=== PATIENT | female | born 1960 | race African-American/Black ===

== ENCOUNTER 2017-02-09 09:45 | Inpatient (IN) | payer MEDICARE, OTHER ==
[2017-02-01 16:20] LABS: BASOPHILS 0.1 %; BASOPHILS ABSOLUTE 0.01 10/3/uL (0.0-0.16); EOSINOPHILS 0.4 %; EOSINOPHILS ABSOLUTE 0.03 10/3/uL (0.0-0.53); HEMATOCRIT 40.5 % (36.0-48.0); HEMOGLOBIN 13.3 g/dL (12.0-16.0); IMMATURE GRANULOCYTES 0.3 %; IMMATURE GRANULOCYTES ABSOLUTE 0.02 10/3/uL (0.0-0.11); LYMPHOCYTES 17.2 %; LYMPHOCYTES ABSOLUTE 1.33 10/3/uL (0.67-4.30); MANUAL DIFF NO %; MEAN CORPUS HGB CONC 32.8 g/dL (32.0-36.0); MEAN CORPUSCULAR VOLUME 97.4 fL (80-100); MEAN PLATELET VOLUME 10.6 fL (9.2-13.0); MONOCYTES ABSOLUTE 0.23 10/3/uL (0.21-1.20); NEUTROPHILS ABSOLUTE 6.12 10/3/uL (2.02-8.40); PLATELET COUNT 297 10/3/uL (150-400); RED CELL COUNT 4.16 10/6/uL (4.0-5.6); WHITE BLOOD CELLS 7.7 10/3/uL (4.5-10.5)
[2017-02-01 16:26] LABS: PROTIME (NOT ORD) 13.1 SEC (12.0-14.5)
[2017-02-01 16:37] LABS: A/G RATIO 0.9 (0.7-1.9); ALBUMIN 3.6 G/DL (3.5-5.0); BUN (BLOOD UREA NITROGEN) 13 MG/DL (6-23); CALCIUM, SERUM 9.2 MG/DL (8.5-10.4); CHLORIDE, SERUM 108 MMOL/L (96-112); CO2 (CARBON DIOXIDE) 30 MMOL/L (24-34); GFR AFRICAN AMERICAN 117 ML/MIN (>=60); GFR NON AFRICAN AMERICAN 101 ML/MIN (>=60); GLOBULIN 3.9 G/DL (2.5-4.1); GLUCOSE, SERUM 96 MG/DL (60-99); SGOT(AST) 12 U/L (5-40); SGPT(ALT) 15 U/L (5-65); SODIUM, SERUM 144 MMOL/L (135-148); TOTAL BILIRUBIN 0.3 MG/DL (0-1.2); TOTAL PROTEIN 7.5 G/DL (6.0-8.5)
[2017-02-01 16:38] LABS: ALKALINE PHOSPHATASE 95 U/L (45-117); POTASSIUM, SERUM 4.2 MMOL/L (3.5-5.3)
[2017-02-01 17:36] LABS: ASCORBIC ACID (UR NOT ORDER) 20 (NEG); BILIRUBIN, URINE NEGATIVE (NEG); KETONE, URINE NEGATIVE (NEG); LEUKOCYTE ESTERASE(NOT OR NEG (NEG); WBC (NOT ORDERED) (RFLEX) 1 (0-5)
--- NOTE | ~2017-02-09 | OP ---
Record Of Operation [facility] [address] [place]. [address] NAME: ROLANDO YOUNG : 58 STATUS : ADM IN PAT#: [id number] AGE: 56 ADM/REG DATE : 02/09/17 MR#: [id number] REPORT SERV DATE: 02/09/17 DICTATED BY: DAGOBERTO SHAH DATE: 02/09/17 REPORT STATUS : Draft TRANSCRIBED BY: ALEXANDRA DATE: 02/09/17 DATE OF PROCEDURE: 02/09/2017 PREOPERATIVE DIAGNOSIS: Severe right hip degenerative joint disease. POSTOPERATIVE DIAGNOSIS: Severe right hip degenerative joint disease. PROCEDURE: Uncemented total hip arthroplasty, Tri-Lock. SIDE: Right side. HOISTER: See chart. ANESTHESIA: See chart. SIZE: See chart. ESTIMATED BLOOD LOSS: About 100 mL. INDICATIONS FOR SURGERY: DESCRIPTION OF PROCEDURE: The patient was taken to the operating room and placed supine on the table without incident. Anesthetic was induced per the anesthesiologist. A Olivier catheter was placed by the nurse in the standard sterile technique. The correct side for the procedure was identified by preoperative markings and matched with the consent form. All personnel in the room were in agreement regarding the procedure, patient, and side. The patient was then carefully positioned and carefully padded and prepped and draped in the normal sterile fashion. The patient received prophylactic preoperative antibiotics at the appropriate time. The preoperative x-ray was brought up on the monitor. Again, this was reviewed with the staff in the room. According with the preoperative plan, and angled, an anterolateral incision was made centered over the trochanter extending from proximal posterior to distal anterior. Electrocautery was used to maintain meticulous hemostasis. The IT band was split in line with its fibers. A Charnley retractor was placed over saline moistened laps. A standard anterolateral approach to the hip was carried out dissecting in line with the vastus medialis fibers lifting the inferior 20% of the vastus medialis, proximally the interior 20% of the gluteus medius and gluteus minimus tendons off the anterior capsule. Periosteal elevator was used to elevate soft tissue gently directly off the proximal anterior femoral bone. Appropriate retractors were carefully placed. Complete anterior capsulectomy was performed. The hip was then carefully dislocated with a combination of traction maneuver by the product development assistant and scooping the ball out of the socket with a Hohmann. A femoral neck osteotomy was marked according to what had been preoperatively planned with a broach as a template. The distance for the femoral neck osteotomy was measured with a ruler. A femoral neck osteotomy was made with an oscillating saw under appropriate retraction. Meticulous hemostasis was again obtained. The leg was then brought up out of the anterior bag and Record Of Operation [address] [place]. [address] NAME: ROLANDO YOUNG : 58 STATUS : ADM IN PAT#: [id number] AGE: 56 ADM/REG DATE : 02/09/17 MR#: [id number] REPORT SERV DATE: 02/09/17 DICTATED BY: DAGOBERTO SHAH DATE: 02/09/17 REPORT STATUS : Draft TRANSCRIBED BY: ALEXANDRA DATE: 02/09/17 positioned with the lower extremity in external rotation and slight flexion. Acetabular retractors were placed carefully palpating to be sure that they were directly on the bone. The acetabular labrum was excised with electrocautery and rongeur. Pulvinar fat was removed with a large curette and rongeur and again meticulous hemostasis was obtained. Sequential reamers were used in the acetabulum to 1 mm. less than the final size which was chosen. This was felt to give excellent interference fit. The acetabular fossa was then copiously irrigated with pulsatile lavage and actual acetabular component was placed and impacted and checked to make sure it was down snug. The overall alignment was checked. The acetabular level glass vial filler was then removed. Screws were placed in the standard fashion. A drill, depth gauge and self tapping screw placement taking care not to plunge as the drill holes were carefully placed. A trial liner was then placed and attention directed back to the proximal femur. The leg was placed back into the anterior bag. The proximal femur was prepared using a box chisel following by a T-handled reamer to determine the intramedullary alignment. This was followed by sequential broaches up to the final broach. Once it was seated in the appropriate position, a Calcar reamer was used to plane the proximal femur. Trial reduction was then done with a trial prosthetic ball and neck. A straight edge was used to compare the tip of the trochanter to center of the ball relationship to what had been noted on the preoperative x-ray. Careful reduction was then done of the total hip. Palpation was done to ascertain and compare leg lengths by palpating the nonoperative leg and also by checking soft tissue tension. The stability of the hip was checked in full extension with full external rotation and in full flexion with adduction, flexion and internal rotation. The hip was then redislocated with a bone hook. The femoral trial and femoral broach were removed. The acetabulum was then prepared under appropriate retraction by removing the trial liner. A central hole eliminator was placed and tightened. The shell was irrigated out. The actual insert was placed and impacted and then checked to be sure it was down snug with a joker. The leg was again positioned in the bag. The proximal femur exposed, irrigated and the actual thermal prosthesis was taken from the access service representative and impacted. Once it was down, the trunnion was cleansed with a wet and dry lap and the prosthetic thermal head was placed and impacted and checked to be sure it was down snug. The acetabulum was irrigated and reduction was obtained. Again, we checked soft tissue tension, leg length and stability as described above. The hip was closed in a layered fashion with a 5 mm. Mersilene tape placed through a single drill hole in the proximal anterior/superior trochanter reattaching the gluteus medius and minimus fibers. The vastus lateralis, gluteus medius, and gluteus minimus were then closed in a sleeve. Drain was placed between the vastus and the IT band exiting distally anteriorly. The IT band was closed. Subcutaneous closure and skin closure were then obtained. A sterile dressing was applied. The patient was carefully positioned into a supine position and then awakened. The patient was then carefully transferred to the stretcher to be returned to the postoperative care unit without incident. COMPLICATION: None. SPECIMENS: Right femoral head. Record Of Operation [address] [place]. [address] NAME: ROLANDO YOUNG : 58 STATUS : ADM IN [facility]#: [id number] AGE: 56 ADM/REG DATE : 02/09/17 MR#: [id number] REPORT SERV DATE: 02/09/17 DICTATED BY: DAGOBERTO SHAH DATE: 02/09/17 REPORT STATUS : Draft TRANSCRIBED BY: MODJamal DATE: 02/09/17 WTB/MODL Awilda Shah M.D. / [id number] CC: Awilda Shah M.D.
--- NOTE | ~2017-02-09 | DS ---
Discharge Summary [facility] [address] [place]. [address] NAME: ROLANDO YOUNG : 58 STATUS : DIS IN PAT#: [id number] AGE: 56 ADM/REG DATE : 02/09/17 MR#: [id number] REPORT SERV DATE: 02/24/17 DICTATED BY: DAGOBERTO SHAH DATE: 02/23/17 REPORT STATUS : Draft TRANSCRIBED BY: ALEXANDRA DATE: 02/23/17 Data Collection from hospitalization DISCHARGE DIAGNOSES: 1. Severe right hip degenerative joint disease. 2. Hypertension. 3. Lupus. 4. Fibromyalgia. 5. Hypercholesterolemia. 6. Gastroesophageal reflux disease. 7. Anxiety. CONSULTATIONS: None. PROCEDURES PERFORMED: Uncemented total hip arthroplasty, Tri-Lock, 02/09/2017. PATHOLOGY: Right femoral head arthroplasty-changes consistent with degenerative joint disease. Trilineage hematopoiesis present. DISCHARGE MEDICATIONS: Norvasc 5 mg daily, vitamin D 1000 units daily, Colace 100 mg twice a day, ferrous sulfate 300 mg with breakfast and supper, Plaquenil 200 mg twice a day, Theragran tablets one tablet with breakfast, Prilosec 40 mg daily, Klor-Con 20 mEq daily, Demadex 20 mg daily, Coumadin 5 mg as instructed, Deltasone 7 mg every morning, Flexeril 5 mg as needed, vitamin B12 as instructed, Dilaudid 4 mg every four hours as needed for pain. CONDITION AT DISCHARGE: Stable. DISPOSITION: The patient was discharged to [facility] on a regular diet with activities as instructed. She would follow up with me on 02/14/2017. HOSPITAL COURSE: This is a 56-year-old female, who had undergone right total knee arthroplasty, 01/16/2017. The patient said that she had developed severe knee pain going up into the hip. She had complained of moderate constant to intermittent right hip pain for about two years. The location of the hip pain was anterior/groin. She was found to have severe right hip degenerative joint disease. Treatment options were discussed and it was elected to proceed with surgical intervention. She was admitted to the hospital at this time for further evaluation and treatment. Upon admission, she was taken to the operating room, where she underwent the above-mentioned procedure. She tolerated this well and there were no complications. On postop day #1, she was up sitting in a bedside chair. She complained that her pain was not controlled. She says that she takes oxycodone at home for fibromyalgia and lupus. [place] hose were in place. Prednisone was continued. We would encourage her to lose weight. Blood pressure was controlled. Norvasc was continued. She remained on Protonix. On 02/11/2017, she still complained of right hip pain that was 8/10. Over the next couple of days, she complained that her lupus was acting up. She said she hurt all over. The patient had not done stairs at the present time. Discharge planning was performed. We encouraged her to mobilize with Physical Therapy. Plaquenil was restarted. Discharge planning was performed. On Discharge Summary [address] [address] NAME: ROLANDO YOUNG : 58 STATUS : DIS IN PAT#: [id number] AGE: 56 ADM/REG DATE : 02/09/17 MR#: [id number] REPORT SERV DATE: 02/24/17 DICTATED BY: DAGOBERTO SHAH DATE: 02/23/17 REPORT STATUS : Draft TRANSCRIBED BY: ALEXANDRA DATE: 02/23/17 02/13/2017, the patient was able to stand by herself for dressing changes. She had not passed physical therapy. She was making slow progress. Discharge instructions were given. Due to her improved and stable condition, she was discharged to [facility] with the above-stated instructions. Information collected by: Noelle Diaz I submit the above information as my discharge summary. FANI/ALEXANDRA Awilda Shah M.D. / [id number] CC: Karyna Maldonado M.D. [facility]
[~2017-02-09 09:45] MED LIST: ADOXA50 MG PO; AMB10 PO; CEFT5 PO; CIP5 PO; DEMA20 PO; FLEX PO; FLEXERIL5 MG PO; KLOR-CON M2020 MEQ PO; MSCONT15 PO; NEUR100 PO; NEXIUM40 PO; NORV5 PO; OXYCOD PO; P5 PO; PCET PO; PERCOCET1 TA4 PO; PLAQ200B PO; PRILO PO; PRILOSEC40 MG PO; TOPXL100 PO; TUMERIC; VITAMIN B12; VITAMIN D1000 UNI1 PO; ZOFRAN4 PO
[2017-02-10 05:04] LABS: HEMATOCRIT 34.7 % (36.0-48.0); HEMOGLOBIN 11.5 g/dL (12.0-16.0)
[2017-02-10 05:13] LABS: INTERNATIONAL NORMAL RATI 1.2 UNITS (-); PROTIME (NOT ORD) 14.7 SEC (12.0-14.5)
[2017-02-10 05:18] LABS: BUN (BLOOD UREA NITROGEN) 13 MG/DL (6-23); CHLORIDE, SERUM 100 MMOL/L (96-112); CO2 (CARBON DIOXIDE) 27 MMOL/L (24-34); GFR AFRICAN AMERICAN 117 ML/MIN (>=60); GFR NON AFRICAN AMERICAN 101 ML/MIN (>=60); POTASSIUM, SERUM 4.2 MMOL/L (3.5-5.3)
[2017-02-10 05:29] LABS: CALCIUM, SERUM 8.7 MG/DL (8.5-10.4); GLUCOSE, SERUM 148 MG/DL (60-99); SODIUM, SERUM 135 MMOL/L (135-148)
[2017-02-11 06:40] LABS: HEMATOCRIT 30.5 % (36.0-48.0)
[2017-02-11 06:44] LABS: INTERNATIONAL NORMAL RATI 1.2 UNITS (-); PROTIME (NOT ORD) 14.6 SEC (12.0-14.5)
[2017-02-12 05:44] LABS: HEMATOCRIT 29.6 % (36.0-48.0); HEMOGLOBIN 9.6 g/dL (12.0-16.0)
[2017-02-12 05:53] LABS: INTERNATIONAL NORMAL RATI 1.2 UNITS (-); PROTIME (NOT ORD) 15.1 SEC (12.0-14.5)
[2017-02-13 05:24] LABS: HEMOGLOBIN 9.9 g/dL (12.0-16.0)
[2017-02-13 05:28] LABS: INTERNATIONAL NORMAL RATI 1.2 UNITS (-); PROTIME (NOT ORD) 15.2 SEC (12.0-14.5)
== END 2017-02-13 21:30 | DRG 470 ==
LOC: SDC/OF 09:45 → PACU 15:50 → 3JRC 18:15
PROVIDERS: Nurse Practitioner Acute Care; Specialist
PROC: 0SR902A Replacement of Right Hip Joint with Metal on Polyethylene Synthetic Substitute, Uncemented, Open Approach (ICD-10-PCS; principal; 2017-02-09 11:00)
DX: M16.11 Unilateral primary osteoarthritis, right hip (principal); Z68.42 Body mass index [BMI] 45.0-49.9, adult; M32.9 Systemic lupus erythematosus, unspecified; M79.7 Fibromyalgia; I10 Essential (primary) hypertension; K21.9 Gastro-esophageal reflux disease without esophagitis; E66.9 Obesity, unspecified; Z88.2 Allergy status to sulfonamides; Z79.899 Other long term (current) drug therapy; Z79.52 Long term (current) use of systemic steroids; E78.00 Pure hypercholesterolemia, unspecified
CPT/HCPCS: 36415; 71020; 80048; 80053; 81001; 85014; 85018; 85025; 85610; 86850; 86900; 86901; 87641; 88304; 88311; 93005; 97110-GP; 97116-GP; 97161-GP; 97165-GO; 97530-GP; 97535-GO; A9270-GY; C1713; C1776; G8978-CK-GP; G8979-CI-GP; J0690; J1170; J1885; J2175; J2250; J2274; J2405; J2710; J2795; J3010